=== PATIENT | male | born 1950 | race Caucasian/White ===

== ENCOUNTER 2018-02-09 12:44 | Day surgery (SDC) | payer MEDICARE, OTHER ==
[~2018-02-09 12:44] MED LIST: Lactated Ringers 1,000 ML IV SCH
--- NOTE | 2018-02-09 13:42 | PCM.PREANE ---
Preanesthetic Assessment - Anesthesia/Transfusion/Family Hx Anesthesia History: Prior Anesthesia Without Reaction Family History of Anesthesia Reaction: No Transfusion History: Prior Transfusion Without Reaction Intubation History: Unknown - Review of Systems General: No Symptoms Pulmonary: No Symptoms Cardiovascular: No Symptoms Gastrointestinal: Other (black tarry stools) Neurological: No Symptoms Other: Reports: None - Physical Assessment O2 Sat by Pulse Oximetry: 97 Respiratory Rate: 18 Vital Signs: Last Vital Signs Temp 36.5 C 02/09/18 13:10 Pulse 90 02/09/18 13:10 Resp 18 02/09/18 13:10 BP 171/79 H 02/09/18 13:10 Pulse Ox 97 02/09/18 13:10 Height: 1.73 m Weight: 103.873 kg ASA Class: 2 Mental Status: Alert & Oriented x3 Airway Class: Mallampati = 2 Dentition: Reports: Dentures (upper and lower) Thyro-Mental Finger Breadths: 2 Mouth Opening Finger Breadths: 2 ROM/Head Extension: Limited/Partial Lungs: Clear to Auscultation, Normal Respiratory Effort Cardiovascular: Regular Rate, Regular Rhythm - Allergies Allergies/Adverse Reactions: Allergies Allergy/AdvReac Type Severity Reaction Status Date / Time probiotic Allergy Rash Uncoded 02/05/18 16:07 - Blood Blood Available: No - Anesthesia Plan Pre-Op Medication Ordered: None - Acknowledgements Anesthesia Type Planned: MAC Pt an Appropriate Candidate for the Planned Anesthesia: Yes Alternatives and Risks of Anesthesia Discussed w Pt/Guardian: Yes Pt/Guardian Understands and Agrees with Anesthesia Plan: Yes PreAnesthesia Questionnaire HEENT History: Reports: Hard of Hearing Other HEENT History: uses reading glasses, has upper and lower dentures Gastrointestinal History: Reports: GI Bleed Musculoskeletal History: Reports: Fracture Endocrine/Metabolic History: Reports: Obesity/BMI 30+ Hematologic History: Reports: Anemia, Blood Transfusion(s) Dermatologic History: Reports: Other (See Below) Other Dermatologic History: Currently has a rash from "Probiotic medication"- has stopped taking - Past Surgical History Male Surgical History: Reports: Vasectomy Musculoskeletal Surgical History: Reports: ORIF Other Musculoskeletal Surgeries/Procedures:: hx of right fx patella- hardware removed - SUBSTANCE USE Smoking Status *Q: Never Smoker (quit 27 years ago) Days Per Week of Alcohol Use: 7 Number of Drinks Per Day: 4 Total Drinks Per Week: 28 Recreational Drug Use History: No - HOME MEDS Home Medications: Home Meds Esomeprazole [NexIUM] 40 mg PO DAILY 02/05/18 [History] Ferrous Sulfate [Iron] 325 mg PO DAILY 02/05/18 [History] - CURRENT (IN HOUSE) MEDS Current Meds: Current Medications Lactated Ringer's (Ringers, Lactated) 1,000 mls @ 125 mls/hr IV ASDIRECTED [facility] Last Admin: 02/09/18 13:11 Dose: 125 mls/hr
[2018-02-09] MEDS ORDERED: Lidocaine 2% 5 ML SDV ONE (14:23)
[2018-02-09] MEDS ORDERED: fentaNYL 100 MCG/2 ML SDV ONE (14:24)
[2018-02-09] MEDS ORDERED: Midazolam 1 MG/ML 2 ML SDV ONE (14:24)
[2018-02-09] MEDS ORDERED: Propofol 200 MG/20 ML SDV ONE (14:24)
--- NOTE | 2018-02-09 14:52 | PCM.OPNOTE ---
- General Post-Op/Procedure Note Date of Surgery/Procedure: 02/09/18 Operative Procedure(s): egd w bx. colonoscopy Findings: see dict [id number] Pre Op Diagnosis: black tarry stool Post-Op Diagnosis: Same Anesthesia Technique: Moderate Sedation Primary Surgeon: Jaime Phoenix Complications: None Condition: Good
--- NOTE | 2018-02-09 15:25 | PCM.POSTAN ---
POST ANESTHESIA ASSESSMENT - MENTAL STATUS Mental Status: Alert, Oriented - RESPIRATORY Respiratory Status: Respiratory Rate WNL, Airway Patent, O2 Saturation Stable - CARDIOVASCULAR CV Status: Pulse Rate WNL, Blood Pressure Stable - GASTROINTESTINAL GI Status: No Symptoms - PAIN Pain Score: 0 - POST OP HYDRATION Hydration Status: Adequate & Stable
--- NOTE | 2018-02-09 15:33 | PCM48HPAN ---
Post Anesthesia Note - EVALUATION WITHIN 48HRS OF ANESTHETIC Vital Signs in Normal Range: Yes Patient Participated in Evaluation: Yes Respiratory Function Stable: Yes Airway Patent: Yes Cardiovascular Function Stable: Yes Hydration Status Stable: Yes Pain Control Satisfactory: Yes Nausea and Vomiting Control Satisfactory: Yes Mental Status Recovered: Yes Resp Rate: 21 - COMMENTS/OBSERVATIONS Free Text/Narrative:: Pt sitting up drinking water - no apparent anesthesia complications.
--- NOTE | 2018-02-09 17:09 | OR ---
SURGEON: Jaime Phoenix MD DATE OF PROCEDURE: 02/09/2018 PREOPERATIVE DIAGNOSIS: Black tarry stool. POSTOPERATIVE DIAGNOSIS: Gastritis. PROCEDURES PERFORMED: Esophagogastroduodenoscopy with biopsy and colonoscopy. PROCEDURE IN DETAIL: EGD: The patient was taken to the endoscopy room, and with the ASSEMBLY HAND, Diprivan was administered. A well-lubricated EGD scope was gently inserted through the oropharynx, down the esophagus, passing through the gastroesophageal junction, into the stomach. The mucosa was examined upon the passage. Any etiology will be noted. Once in the stomach, we continued to advance to the distal antrum, passed through the pylorus into the second portion of the duodenum. Again, the mucosa was examined for any abnormality and etiology. The scope was then retrieved back to the stomach and then retroflexed to look at the fundus of the stomach. If a biopsy was indicated, we will biopsy the antrum, body, and gastroesophageal junction. The air will be sucked out while the scope is retrieved to reduce the patient's discomfort. The patient tolerated the procedure well. There were no intraoperative complications. Dr. Phoenix was present through the whole procedure. Prior to surgery, a time-out had been called, the patient identified, procedure identified and antibiotic administered. Colonoscopy procedure: The patient was taken to the endoscopy room. A time out was called, patient identified, and procedure identified. Diprivan was then administrated. Patient went from awake to sleep, hearing doctor talking or door closing is normal. Perineum inspection and digital examination were then performed. A well- lubricated colonoscope was gently inserted through the rectum, advanced past the rectosigmoid junction, the descending colon, splenic flexure, transverse colon, hepatic flexure, ascending colon, arrived to the cecum. Cecum was identified as dictated in the finding. Then the scope was carefully withdrawn while attention was paid to the mucosal surface for any abnormality. Air will be sucked out during the scope withdrawal. At the rectum, retroflexed to examine any rectal diseases, fistula or hemorrhoids. Patient tolerated procedure well. There were no intraoperative complications, and Dr. Phoenix was present throughout the whole procedure. FINDINGS: EGD findings: 1. The patient is easily sedated with ASSEMBLY HAND and Diprivan. The patient is soundly snoring. 2. Oropharynx and proximal esophagus are free of disease, and GE junction at 40 shows some mild salmon-colored change consistent with GERD, and stomach rugae is a little bit flattened. Mucosa is very friable, you touch it, they bleed. I do not see any ulcer at all, but I see a little bit blood in the duodenal bulb and the stomach, but there is no blood clot. Suggests that this is probably secondary to scope trauma. Second portion of duodenum was grossly normal in appearance. Scope retrieved back to the stomach and retroflexed to look at the fundus of stomach. There was no hiatal hernia. Biopsy only done at the stomach once and sucked out the gas while scope pulling out. Again, we see blood, we do not find any ulcer. Colonoscopy findings: 1. The patient is easily sedated with ASSEMBLY HAND and Diprivan. The patient is soundly snoring. 2. Bowel prep is average with large amount of liquid stool, no semi-formed stool. 3. Colon is rather tortuous and redundant in the sigmoid stage and required several maneuvering in order to get to the cecum. Cecum indicated by light emittance, single indentation, appendiceal orifice and ileocecal fold, and mucosa examined upon scope pulling out. The patient does not have diverticulum, polyp, mass, growth, inflammation, stricture, ulceration, or AV malformation. The stool was yellow in color. The patient does have internal hemorrhoids. No external hemorrhoids. The patient would benefit from repeat colonoscopy 10 years from today or if clinically indicated otherwise. NARESH / JAI /[id number] MARIO
== END 2018-02-09 15:40 | disposition home or self-care (01) ==
LOC: MW.SDS 12:44
PROVIDERS: ATTEND Surgery
DX: K92.1 Melena (principal); K29.70 Gastritis, unspecified, without bleeding; K64.8 Other hemorrhoids; D64.9 Anemia, unspecified; F10.10 Alcohol abuse, uncomplicated; E66.9 Obesity, unspecified; Z68.34 Body mass index [BMI] 34.0-34.9, adult; Z87.891 Personal history of nicotine dependence; Z79.899 Other long term (current) drug therapy; Z88.8 Allergy status to other drugs, medicaments and biological substances
CPT/HCPCS: 43239; 45378; 88305; 88312; J2250; J3010; J7120; 00813; J2704